=== PATIENT | male | born 1970 | race Caucasian/White ===

== ENCOUNTER 2020-01-08 13:24 | Observation (INO) | payer OTHER ==
[~2020-01-08] VITALS: Ht 185.4 cm; Wt 85.2 kg
[2020-01-08] MEDS ORDERED: cefTRIAXone FOR IV USE 1,000 MG in WATER (STERILE) FOR INJECTION 10 ML IV ONE (14:00)
[2020-01-08] MEDS ORDERED: TETANUS,DIPTH,PERTUSS P/F (BOOSTRIX) 0.5 ML VIAL IM ONE (14:00)
[2020-01-08] MEDS ORDERED: fentaNYL INJECTION 100 MCG/2 ML AMP IVP ONE (14:00)
--- NOTE | 2020-01-08 14:03 | ED Trauma-Multisystem ---
General Chief Complaint: Trauma-Non Activation Nursing Triage Note: ARRIVED VIA WC TO ROOM 05. STATES HE WAS AT WORK AT [email or web address] THIS AM AND A BAR STOCK SWUNG AND HIT HIM. PAIN IN RIGHT TESTICLE AND LEFT LEG. PUCTURE WOUND AND LEFT LEG DEFORMITY NOTED. Source of Information: Patient Exam Limitations: No Limitations History of Present Illness Date Seen by Provider: Jan 08, 2020 Time Seen by Provider: 14:00 Initial Comments To ER by private vehicle with reports of puncture wound to lower extremities. 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 When he lifted that there was apparently some metal beneath it and the spinning blades on the silk screen cutter through the metal through the shatterproof glass striking him in the scrotum, left thigh left lower leg and right lower leg. Tetanus is not up-to-date. Occurred: Just Prior to Arrival Severity: Moderate Pain/Injury Location: Lower Extremity, Pelvis Associated Symptoms (Fall): Denies Symptoms Allergies and Home Medications Allergies Coded Allergies: No Known Drug Allergies (Unverified , 01/08/20) Home Medications No Active Prescriptions or Reported Meds Patient Home Medication List Home Medication List Reviewed: Yes Review of Systems Review of Systems Constitutional: see HPI Eyes: No Symptoms Reported Ears: No Symptoms Reported Nose: No Symptoms Reported Mouth: No Symptoms Reported Throat: No Symptoms to Report Respiratory: no symptoms reported Cardiovascular: No Symptoms Reported Genitourinary: no symptoms reported Musculoskeletal: no symptoms reported Past Zepsaaj-Kcjvba-Ghjcgu Hx Patient Social History Recent Foreign Travel: No Contact w/Someone Who Travel: No Recent Infectious Disease Expo: No Physical Exam Vital Signs Vital Signs - First Documented 01/08/20 13:35 Temp 36.4 Pulse 103 Resp 16 B/P (MAP) 96/68 (77) Pulse Ox 99 O2 Delivery Room Air Height, Weight, BMI Height: '" Weight: lbs. oz. kg; 24.00 BMI Method: General Appearance: No Apparent Distress, WD/WN Head: No Evidence of Injury; No Active Bleeding, No Baekr's Sign, No Contus ions Eyes: Bilateral Eye Normal Inspection, Bilateral Eye PERRL, Bilateral Eye EOMI Neck: Full Range of Motion, Normal Inspection Respiratory: Normal Breath Sounds, No Accessory Muscle Use Gastrointestinal: Normal Bowel Sounds, Non Tender, Soft Genital/Rectal: Other (right scrotal ecchymosis and swelling, tenderness. The overlying skin is contused but intact. no blood at the meatus to suggest urethe ral trauma. no metallic foreign bodies on pelvis plan film. ) Extremity: Normal Capillary Refill, No Pedal Edema Neurologic/Psychiatric: Alert, Oriented x3 Skin: Normal Color, Warm/Dry No facial or torso injury. There is an area of ecchymosis and erythema without puncture wound over the right inguinal region superior to the scrotum. To the right medial posterior thigh there is a puncture wound, there is a hematoma to the medial anterior tibia. Deja Coma Score Best Eye Response (Henderson): (4) Open Spontaneously Best Verbal Response (Henderson): (5) Oriented Best Motor Response (Deja): (6) Obeys Commands Deja Total: 15 Progress/Results/Core Measures Results/Orders My Orders Orders - LÁZARO REYNA APRN Dipht,Pertuss(Acell),Tet Adult (Boostrix (01/08/20 14:00) Ceftriaxone For Iv Use (Rocephin For I (01/08/20 14:00) Fentanyl Injection (Sublimaze Injection (01/08/20 14:00) Ed Iv/Invasive Line Start (01/08/20 13:57) Us Scrotum (Testicle) [id number] (01/08/20 13:57) Pelvis (01/08/20 13:57) Femur, Left, 2 Views (01/08/20 13:57) Tibia/Fibula, Left, 2 Views (01/08/20 13:57) Knee, 3 Views, Bilateral (01/08/20 14:45) Hydromorphone Injection (Dilaudid Inject (01/08/20 15:30) Us Left Low Ext Arterial [id number] (01/08/20 15:39) Medications Given in ED Current Medications Medications Dose Ordered Sig/Yosi Route Start Time Stop Time Status Last Admin Dose Admin Ceftriaxone Sodium 1000 mg/ Sterile Water 10 ml @ 200 mls/hr ONCE ONCE IV 01/08/20 14:00 01/08/20 14:02 DC 01/08/20 14:13 200 MLS/HR Diphtheria/ Tetanus/Acell Pertussis 0.5 ml ONCE ONCE IM 01/08/20 14:00 01/08/20 14:01 DC 01/08/20 14:07 0.5 ML Fentanyl Citrate 50 mcg ONCE ONCE IVP 01/08/20 14:00 01/08/20 14:01 DC 01/08/20 14:12 50 MCG Hydromorphone HCl 0.5 mg ONCE ONCE IV 01/08/20 15:30 01/08/20 15:31 DC 01/08/20 15:36 0.5 MG Vital Signs/I&O 01/08/20 13:35 Temp 36.4 Pulse 103 Resp 16 B/P (MAP) 96/68 (77) Pulse Ox 99 O2 Delivery Room Air Blood Pressure Mean: 77 Departure Communication (Admissions) Family Conversation [facility], [place] NAME: JUAN CLARKE [facility] REC#: [id number] PT STATUS: REG ER : 1970 PHYSICIAN: LÁZARO REYNA APRN ADMIT DATE: 01/08/20/ER Draft Date of Exam:01/08/20 US SCROTUM (Testicle) [id number] PROCEDURE: US Scrotum. TECHNIQUE: Multiple real-time grayscale images were obtained over the scrotum in various projections bilaterally. INDICATION: Testicular injury. FINDINGS: Right testicle measures 4.8 x 3.3 x 3.4 cm and the left testicle measures 4.3 x 2.4 x 2.2 cm. Marked abnormal appearance to the right hemiscrotum is noted. There appears to be significant mixed echogenicity, primarily in an extratesticular location in the right hemiscrotum with mixed areas of increased and decreased echogenicity and septations. Features are consistent with a large right-sided hematocele. The blood products do appear to distort the testicular parenchyma and indent the testicular parenchyma. There may be a component of testicular contusion and hematoma as well, particularly inferiorly. There is significant irregularity involving the contour of the testicle. Angular and undulating contour does suggest testicular rupture. The left testicle shows homogeneous echotexture and normal blood flow. There is also blood flow within the right testicle. No left-sided hydrocele is seen. Epididymis on the right is poorly visualized. Left epididymis is unremarkable. IMPRESSION: Right scrotal trauma. There appears to be a large hematocele on the right. In addition, there is irregular contour to the testicular lilly, suggestive of testicular rupture. Dictated on workstation # [id number] Dict: 01/08/20 1523 Trans: 01/08/20 1608 [id number] [id number] Interpreted by: CHANCE MATOS MD Electronically signed by: [facility] [place], [place] NAME: JUAN CLARKE [facility] REC#: [id number] PT STATUS: ADM Curtis : 1970 PHYSICIAN: LÁZARO REYNA APRN ADMIT DATE: 01/08/20 Draft Date of Exam:01/08/20 US LEFT LOW EXT ARTERIAL [id number] INDICATION: Injury to the left leg and decreased pulse. EXAMINATION: Left leg arterial Doppler study is performed in the routine fashion with color flow Doppler and waveform analysis. FINDINGS: Left common femoral artery and profunda femoris artery are patent with triphasic flow. The left SFA and proximal artery are patent with triphasic flow. Tibial vessels are patent with biphasic flow. IMPRESSION: No evidence of major vessel stenosis or occlusion. Dictated on workstation # [id number] Dict: 01/08/20 1700 Trans: 01/08/20 1703 [facility] [id number] Interpreted by: KULWINDER JULES MD Electronically signed by: [id number]-there is a puncture wound over the medial aspect of the left mid thigh. He does have a palpable but weak left posterior tibial pulse. While this could certainly be from years of hypertension and smoking, arterial injury is within the differential at this time. There is no hematoma to the thigh, I do not suspect any arterial injury but will get an arterial ultrasound to confirm vascular integrity. In the meantime urology has been notified about the findings of likely testicular rupture. He is going to speak with radiology and call me back with the plan. 1607-Dr. Mensah has been here to see the patient, we will admit on observation with scrotal support, ice pack to the scrotum, pain medication and reevaluate in the morning for possible operative repair. Impression Primary Impression: Rupture of testis Qualified Codes: S31.30XA - Unspecified open wound of scrotum and testes, initial encounter Disposition: HOME, SELF-CARE Condition: Stable Departure-Patient Inst. Scripts No Active Prescriptions or Reported Meds LÁZARO REYNA APRN Jan 08, 2020 14:03
--- NOTE | 2020-01-08 14:43 | Diagnostic Imaging Report ---
INDICATION: Pelvic pain and injury. TIME OF EXAM: 02:24 p.m. FINDINGS: AP view of the pelvis demonstrates normal femoral acetabular alignment. Both femoral heads and necks appear to be intact. Rami are intact. No fractures are seen. IMPRESSION: No acute bony abnormality is detected. Dictated by: Dictated on workstation # [id number]
--- NOTE | 2020-01-08 14:45 | Diagnostic Imaging Report ---
INDICATION: Left leg injury. Time of exam 2:25 PM Frontal and lateral views left femur were obtained. Alignment at the hip and knee appears normal. The femur appears intact. No fractures are identified. No definite soft tissue abnormality is seen. No radiopaque soft tissue foreign body is seen. IMPRESSION: No acute abnormality is detected. Dictated by: Dictated on workstation # [id number]
--- NOTE | 2020-01-08 14:47 | Diagnostic Imaging Report ---
INDICATION: Puncture wound to the lower thigh. TIME OF EXAM: 2:28 p.m. EXAMINATION: AP and lateral views of the left tibia and fibula were obtained. FINDINGS: Alignment at the knee and ankle appears normal. Tibia and fibula appear intact. No fracture is seen. IMPRESSION: No acute bony abnormality is detected. Dictated by: Dictated on workstation # [id number]
--- NOTE | 2020-01-08 15:26 | NUR ---
PT COMPLAINS OF PAIN. LÁZARO NOTIFIED. UPDATE GIVEN TO PT'S .
[2020-01-08] MEDS ORDERED: HYDROmorphone 2 MG/ML VIAL (DILAUDID) IV ONE (15:30)
--- NOTE | 2020-01-08 15:37 | NUR ---
LÁZARO IN TO TALK TO THE PT.
--- NOTE | 2020-01-08 15:42 | Diagnostic Imaging Report ---
INDICATION: Knee injuries. TIME OF EXAM: 02:26 p.m. EXAMINATION: Multiple views of the bilateral knees were obtained. FINDINGS: Alignment is normal. Joint spaces are well maintained. Articular surfaces are smooth. No fracture, dislocation or effusion is seen. IMPRESSION: No acute abnormality is detected. Dictated by: Dictated on workstation # [id number]
--- NOTE | 2020-01-08 15:45 | Diagnostic Imaging Report ---
PROCEDURE: US Scrotum. TECHNIQUE: Multiple real-time grayscale images were obtained over the scrotum in various projections bilaterally. INDICATION: Testicular injury. FINDINGS: Right testicle measures 4.8 x 3.3 x 3.4 cm and the left testicle measures 4.3 x 2.4 x 2.2 cm. Marked abnormal appearance to the right hemiscrotum is noted. There appears to be significant mixed echogenicity, primarily in an extratesticular location in the right hemiscrotum with mixed areas of increased and decreased echogenicity and septations. Features are consistent with a large right-sided hematocele. The blood products do appear to distort the testicular parenchyma and indent the testicular parenchyma. There may be a component of testicular contusion and hematoma as well, particularly inferiorly. There is significant irregularity involving the contour of the testicle. Angular and undulating contour does suggest testicular rupture. The left testicle shows homogeneous echotexture and normal blood flow. There is also blood flow within the right testicle. No left-sided hydrocele is seen. Epididymis on the right is poorly visualized. Left epididymis is unremarkable. IMPRESSION: Right scrotal trauma. There appears to be a large hematocele on the right. In addition, there is irregular contour to the testicular lilly, suggestive of testicular rupture. Dictated by: Dictated on workstation # [id number]
--- NOTE | 2020-01-08 15:46 | NUR ---
PT AGREED TO GET INTO BED. WARM BLANKET GIVEN.
--- NOTE | 2020-01-08 16:00 | NUR ---
RIGHT TESTICLE SWOLLEN ET PURPLE AND BRUISED IN COLOR. PAINFUL TO TOUCH.
--- NOTE | 2020-01-08 16:00 | NUR ---
DR REDD HERE. PLAN IS FOR PT TO STAY. PT'S UPDATED.
--- NOTE | 2020-01-08 16:54 | NUR ---
LEFT LEG PUNCTURE WOUND CLEANED WITH SURGICAL SOAP AND STERILE WATER Addendum: 01/08/20 at 1701 by NSNYDER TRIPPLE ANTIBIOTIC OINTMENT APPLIED TO ABRASIONS.
--- NOTE | 2020-01-08 16:55 | NUR ---
SCROTAL SUPPORT GIVEN TO PT. PT REQUEST TO PUT IT ON WHEN HE GOES TO THE FLOOR.
--- NOTE | 2020-01-08 17:03 | Diagnostic Imaging Report ---
INDICATION: Injury to the left leg and decreased pulse. EXAMINATION: Left leg arterial Doppler study is performed in the routine fashion with color flow Doppler and waveform analysis. FINDINGS: Left common femoral artery and profunda femoris artery are patent with triphasic flow. The left SFA and proximal artery are patent with triphasic flow. Tibial vessels are patent with biphasic flow. IMPRESSION: No evidence of major vessel stenosis or occlusion. Dictated by: Dictated on workstation # [id number]
[2020-01-08 17:09] VITALS: BP 114/63
[2020-01-08] MEDS ORDERED: ONDANSETRON 4 MG/2 ML (SDV) Z0FRAN IVP PRN (17:30)
[2020-01-08] MEDS: NICOTINE 21 MG (NICODERM) PATCH TD SCH (17:40)
[2020-01-08] MEDS: LACTATED RINGERS 1,000 ML IV SCH (17:40)
--- NOTE | 2020-01-08 17:50 | HISTORY AND PHYSICAL ---
DATE OF SERVICE: ADMISSION HISTORY AND PHYSICAL CHIEF COMPLAINT: Right testicular trauma. PRESENT HISTORY: A 49-year-old white man, who was hit by a bar in his right scrotum as well as his legs. He complained of pain in the right testicle. His ultrasound is really ____ regarding true rupture of the testicle not very convincing. He denies any other complaints. He is , has children. Smokes a pack of cigarettes a day. No alcohol, no drugs. MEDICAL ILLNESS: Osteoarthritis. ALLERGIES: No known drug allergies. MEDICATIONS: Mobic daily 7.5 mg. PHYSICAL EXAMINATION: GENERAL: Well-nourished, well-developed in no acute distress. HEENT: Head is normocephalic. CHEST: Clear. HEART: Regular rate and rhythm. ABDOMEN: Soft. GENITOURINARY: Phallus adequate meatus. Examination of the scrotum revealed no sign of any hematoma, bruises or contusion. Both sides were completely equal to each other. There is no open wound. The right testicle is tender, but I can feel it all through, I do not think there is a rupture there. There was no significant evidence of any hematocele contrary to what the ultrasound is saying. EXTREMITIES: Lower extremity, no edema. NEUROLOGIC: Grossly intact. Oriented x3. IMPRESSION: Blunt trauma to the right testicle, doubt testicular injury or rupture. PLAN: I strongly recommend to the patient to admit him for observation rest with bathroom privilege. He already received a gram of Rocephin from the ER, put some ice on it, which had been used in the ER, scrotal support and some clear liquids, but n.p.o. after midnight in case we will reevaluate again in the morning or before p.r.n. for possible exploration if warranted. At this point, I do not have any strong clinical reason to go after it surgically because of all the above findings that go against a ruptured testicle. This was fully explained to the patient. First, he wanted to go home, but I convinced him to stay in the hospital in case if anything changes, then we will explore. Job ID: [id number] DocumentID: [id number] Dictated Date: 01/08/2020 16:20:04 Enlisted Advisor Date: 01/08/2020 17:24:32 Dictated By: DAVION REDD MD
[2020-01-08 19:24] VITALS: BP 128/70
[2020-01-08] MEDS: HYDROmorphone 2 MG/ML VIAL (DILAUDID) IV PRN (23:30)
[2020-01-09] VITALS: BP 118/69
[2020-01-09] MEDS: LACTATED RINGERS 1,000 ML IV SCH ×2 (01:34→10:15)
[2020-01-09 04:19] VITALS: BP 103/59
[2020-01-09] MEDS: HYDROmorphone 2 MG/ML VIAL (DILAUDID) IV PRN ×2 (05:33→09:30)
--- NOTE | 2020-01-09 07:39 | NUR ---
CONSULT CALLED TO DR PENG. NO ANSWER. MESSAGE LEFT FOR HIM TO RETURN MY CALL CONCERNING A CONSULT.
--- NOTE | 2020-01-09 07:53 | NUR ---
CALLED DR REDD. THE PATIENT WOULD LIKE TO EAT. DR PENG DID NOT ANSWER. PER DR REDD OKAY TO LET PATIENT EAT.
--- NOTE | 2020-01-09 07:57 | NUR ---
DR PENG RETURNED THE CALL. HE WAS NOTIFIED OF THE CONSULT.
[2020-01-09 08:17] VITALS: BP 117/70
[2020-01-09] MEDS ORDERED: NICOTINE PATCH REMOVAL TP SCH (08:59)
[2020-01-09] MEDS ORDERED: CEPH-507 PO (10:10)
[2020-01-09] MEDS: NICOTINE 21 MG (NICODERM) PATCH TD SCH (10:14)
--- NOTE | 2020-01-09 10:18 | Consultation - Ortho ---
Consult - Ortho Subjective Date of Exam 01/09/20 Chief Complaint Injury left leg HPI/Events since last exam Mr Tuttle is a 49-year-old white male who sustained an injury to his legs yesterday. 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 It struck mainly his left lower extremity but he does have some bur abrasions to the right lower extremity. He also sustained a testicular injury. He was seen in the emergency room and x-rays were obtained. He also had an ultrasound of his left thigh to make sure there was no vascular injury. He states the puncture area really doesn't hurt him. His area of significant pain is anterior aspect of his left p roximal tibia. He has increased pain trying to put weight on the leg and moving the leg causes increased pain. When he sits up and [place] leg hang down he notes less pain and is able to move the knee. Again he is at x-rays which were completely negative for fracture and foreign body and ultrasound left thigh was negative Medical, Surgical History Reviewed and no additions or changes Social History Reviewed and no additions or changes Family History Reviewed and no additions or changes Review of Systems Reviewed and no additions or changes Allergies: Coded Allergies: No Known Drug Allergies (Unverified , 01/08/20) Home Meds Active Scripts Cephalexin (Keflex) 500 Mg Capsule, 500 MG PO TID, #30 CAP Prov:ROSANA PENG MD 01/09/20 Objective Exam Constitutional: [] HEENT: [] Neck: [] Cardiovascular: [] Respiratory: [] Gastrointestinal: [] Genitourinary: [] Skin: [] Back/Spine: [] Extremities: [Exam of the right lower extremity shows abrasions lower leg with no redness or drainage. Good motion of the hip knee and ankle without pain. No instability. Neurovascularly is intact to the right lower extremity. Left lower extremity any motion of his left lower extremity causes pain anterior knee. He has a puncture wound that measures approximately a centimeter in length at the medial thigh at approximately the junction of the mid and distal thirds. Is a Band-Aid over it which I removed any a little bit of bleeding but no purulent drainage. Exam of the knee shows no effusion. No pain over the patella, quadriceps or patellar tendon. Does have significant pain over the tibial tubercle. There is a centimeter and a half superficial abrasion there with no swelling or bleeding. It's transverse in orientation. He has other ab rasions of the lower leg. No calf tenderness and negative Homans. Even with ankle motion he has pain over the tibial tubercle. He has no pain in the foot. Normal sensation of foot and toes with good cap refill and good pulses. He has no pain over the collateral ligaments of the knee. No posterior knee pain. And again no effusion. No swelling or bruising noted anterior knee.] Neurologic: [] Psychiatric: [] Hematologic/lymphatic/immunologic: [] Vital Signs Vital Signs Date Time Temp Pulse Resp B/P (MAP) Pulse Ox O2 Delivery O2 Flow Rate FiO2 01/09/20 08:17 36.2 75 20 117/70 (86) 100 Room Air 01/09/20 04:19 35.8 71 16 103/59 (74) 96 Room Air 01/09/20 00:00 36.0 79 14 118/69 (85) 96 Room Air 01/08/20 20:00 96 Room Air 01/08/20 19:24 37.0 81 16 128/70 (89) 96 Room Air 01/08/20 17:09 36.4 86 20 114/63 95 Room Air 01/08/20 17:05 Room Air 01/08/20 16:59 77 16 117/73 97 Room Air 01/08/20 13:35 36.4 103 16 96/68 (77) 99 Room Air I & O 01/09/20 07:00 Intake Total 670 ml Output Total 850 ml Balance -180 ml Imaging Reviewed x-rays of the lower extremities and there is no evidence of fracture at the pelvis left femur left tibia and fibula both knees. No foreign bodies. The left thigh ultrasound for vascular studies was normal Assessment and Plan Assessment Pain left tibial tubercle Problem List Unchanged Plan The above was discussed with the patient his . Again I don't see any evidence of fracture. I think the metal piece that hit him just contused the patella tendon insertion/tibial tubercle resulting in a bone contusion. Again I see no evidence of fracture. There is really no swelling or bruising. I recommended crutch ambulation weightbearing as tolerated. He does have crutches at home Work on range of motion of the knee. He's already taking Mobic 15 mg a day for tendinitis of his elbow. Continue on that. I would recommend continuing on an antibiotic for the puncture wound and Keflex 500 mg was prescribed number 30 he'll take one 3 times a day 10 days. This was he scribed to his pharmacy in [place]. If after a week to 10 days he continues with problems all seem back in the office for recheck. If he is notes any increased drainage redness or pain at the puncture wound he'll return to the ER for reevaluation Final Diagonsis Puncture wound left posterior medial thigh Contusion left tibial tubercle Level of the visit: Level 3 ROSANA PENG MD Jan 09, 2020 10:18
--- NOTE | 2020-01-09 12:09 | Progress Note - Urology ---
Progress Note-Urology Progress Notes/Assess & Plan Progress/Assessment & Plan AFEBRILE, VSS. NO TESTICULAR COMPLAINTS. HAS PAIN IN THE LEG, WE WILL CONSULT DR JOSHI BEFORE DISCHARGE. SCROTUM SIZE SAME AND EQUAL ON BOTH SIDES. SOME BRUISING ON RT SIDE. TESTIS FEELS NORMAL AND NOT TENDER. VOIDING WELL. DISCHARGE INSTRUCTIONS GIVEN TO PATIENT AND Final Diagnosis RT TESTICULAR CONTUSION DAVION REDD MD Jan 09, 2020 12:09
--- NOTE | 2020-01-09 12:13 | Discharge Inst-Urology ---
Discharge Inst-Urology Reconcile Patient Problems Problems Reviewed?: Yes Final Diagnosis RT TESTICULAR CONTUSION Patient Instructions/Follow Up Plan/Assessment/Instructions Please make appointment to been seen in office early next week. REST till then Scrotal support. Ice PRN Showers. no bath Increase oral fluids for 48 hours and then as needed. Diet as tolerated. If questions or concerns contact your physician Or seek help at emergency department especially increase testicular pain or swelling, fever DAVION REDD MD Jan 09, 2020 12:13
[2020-01-09 12:50] VITALS: BP 117/70
[2020-01-09] MEDS ORDERED: cefTRIAXone 1,000 MG/SWFI 10 ML IV PUSH IV SCH ×2 (14:00)
== END 2020-01-09 12:13 | disposition home or self-care (01) ==
LOC: EDUNIT# 13:24 → ER 13:27 → UNDOADMOB 16:20 → 4TH 16:20 → UNDODISOB 01-09 12:50
PROVIDERS: ADMIT Urology; ATTEND Urology
DX: S31.30XA Unspecified open wound of scrotum and testes, initial encounter (principal); M19.90 Unspecified osteoarthritis, unspecified site; W22.8XXA Striking against or struck by other objects, initial encounter; Z79.899 Other long term (current) drug therapy
CPT/HCPCS: 72170; 73552; 73562; 73590; 76870; 90471; 93926; 96374; 96375; 99284; G0378; 90715